=== PATIENT | female | born 1995 | race Asian ===

== ENCOUNTER → 2017-04-06 | Outpatient (CLI) | payer OTHER ==
--- NOTE | ~2017-04-06 | PFR/MVV ---
[facility] [place] [address] PULMONARY FUNCTION MVV/REPORT Name: BLAKEDOUG Room #: REG [facility].#: [id number] Admission: 04/06/17 Attend Phys: Samir Portillo MD Discharge: Date of : 89 Report #: [id number] THIS REPORT FOR: //name// >> SPIROMETRY: (BTPS) Height: in cm Weight: lbs kg Exam Date: PRE-RX POST-RX PRED BEST %PRED BEST %PRED %CHG FVC LITERS . . . . . . FEV1 LITERS . . . . . . FEV1/FVC % . . . . . . MGN65-23% L/Sec . . . . . . PEF L/SEC . . . . . . FEF50/FIF50 UNITLESS . . . . . . MVV L/Min . . . f 1/Min . . . >> LUNG VOLUMES: (BTPS) PRE-RX POST-RX PRED AVG %PRED AVG %PRED %CHG VC Liters . . . . . . TLC Liters . . . . . . RV Liters . . . . . . RV/TLC % . . . . . . FRC PL Liters . . . . . . FRC N2 Liters . . . . . . ERV Liters . . . . . . IC Liters . . . . . . >> DIFFUSION: DLCO ml/Min/mmHg . . . . . . DL Yves ml/Min/mmHg . . . . . . DLCO/VA ml/Min/mmHg . . . . . . VA Liters . . . . . . COMMENTS: COMMENTS: >> RESISTANCE: [facility] [address] [place] [address] PULMONARY FUNCTION MVV/REPORT Name: СЕРГЕЙ BLKAEDONNELL Room #: REG [facility]#: [id number] Admission: 04/06/17 Attend Phys: Samir Portillo MD Discharge: Date of : 89 Report #: [id number] PRE-RX PRED AVG %PRED Raw Total cmH20/L/Sec . . . Raw Insp cmH20/L/Sec . . . Raw Exp cmH20/L/Sec . . . Raw cmH20/L/Sec . . . Gaw L/Sec/cmH20 . . . sRaw cmH20 Sec . . . sGaw l/cmH20 Sec . . . Vtq Liters . . . # = OUTSIDE 95% CONFIDENCE INTERVAL CALIBRATION: PRED: 3.00 ACTUAL: EXP 3.01 INSP 3.02 [facility] [id number] >> INTERPRETATION/IMPRESSION: CC: Samir Portillo MD Spirometric examination revealed mild to moderate obstructive ventilatory defect. Following bronchodilators, there was statistically significant improvement in the flows. Lung volumes are normal. Diffusion capacity is normal. Flow volume loop is consistent with mild airflow obstruction. IMPRESSION: 1. Mild obstructive ventilatory defect. 2. Reversible airways. Clinical correlation is recommended. By: Ja Easton MD /nt
== END ==
LOC: PUL 03-14 07:53
DX: R06.00 Dyspnea, unspecified (principal)